=== PATIENT | female | born 1955 | race Caucasian/White ===

== ENCOUNTER 2018-05-03 19:32 | Emergency (ER) | payer BC ==
[~2018-05-03] VITALS: Ht 154.9 cm; Wt 62.1 kg
[~2018-05-03 19:32] MED LIST: ACET500T98 PO; AMLO2.5T2 PO; DIPH50VI2 PO; MED4DP PO
[2018-05-03 19:36] VITALS: Ht 154.9 cm; Wt 62.1 kg
[2018-05-03] MEDS ORDERED: SODIUM CHLORIDE 0.9% 1L BAG IV* STA (19:41)
[2018-05-03] MEDS ORDERED: ACETAMINOPHEN 325 MG TAB PO STA (19:41)
[2018-05-03] MEDS ORDERED: AZTREONAM 1 GM/NS (PMX) 50 ML IVPB STA (19:41)
[2018-05-03] MEDS ORDERED: VANCOMYCIN 1 GM (PMX) 250 ML IVPB ONE (20:00)
[2018-05-03] MEDS ORDERED: ONDANSETRON 4 MG INJ IV STA (20:04)
[2018-05-03] MEDS ORDERED: ACET325T33 PO (21:33)
[2018-05-03] MEDS ORDERED: IBUP-1542 PO (21:33)
--- NOTE | 2018-05-03 21:35 | ERD ---
ER Documentation Chief Complaint Chief Complaint C/O COUGH, FEVER, PABLO, ST AND EAR ACHE, ON ANTIBIOTICS HPI Patient is a 62-year-old female with hypertension who presents with fever. The patient is currently on antibiotics for a throat and ear infection per the . The symptoms started on Saturday. She was continued to have fevers. She had a lot of cough as well. The patient has had no urinary symptoms. She is currently on Zithromax. Upon review of old medical records this is the patient's fourth visit to the ER since 2012. The patient's primary doctor is Dr. Dinah Gimenez. ROS All systems reviewed and are negative except as per history of present illness. Medications Home Meds Active Scripts Ibuprofen* (Motrin*) 600 Mg Tab, 600 MG PO Q6H PRN for PAIN AND OR ELEVATED TEMP, #30 TAB Prov:BANDAR TAYLOR MD 05/03/18 Acetaminophen* (Tylenol*) 325 Mg Tablet, 2 TAB PO Q6 PRN for PAIN AND OR ELEVATED TEMP, #20 TAB Prov:BANDAR TAYLOR MD 05/03/18 Diphenhydramine* Inj (Benadryl* Inj) 50 Mg/Ml Soln, 25 MG PO Q6H, #40 VIAL Prov:MARY CASANOVA MD 11/08/13 Methylprednisolone* (Medrol* DOSE PACK) 4 Mg/Dose-Pack Tab.ds.pk, 5 MG PO 2 HOURS AFTER MEALS, #45 Take 6 pills orally for 2 days Take 5 pills orally for 2 days Take 4 pills orally for 2 days Take 3 pills orally for 2 days Take 2 pills orally for 2 days Take 1 pill orally for 2 days Take one half pill orally for 2 days Prov:MARY CASNAOVA MD 11/08/13 Amlodipine Besylate* (Norvasc*) 2.5 Mg Tab, 2.5 MG PO ONCE, #14 Prov:MARY CASANOVA MD 11/08/13 Reported Medications Acetaminophen (Tylenol) 500 Mg Tab, 500 MG PO Q4 PRN for PAIN LEVEL 1-3, TAB 11/07/13 Allergies Allergies: Coded Allergies: Cefadroxil (Verified Allergy, Severe, facial rash, 11/07/13) Penicillins (Verified Allergy, Unknown, 11/06/13) PMhx/Soc Medical and Surgical Hx: pt denies Surgical Hx History of Surgery: No Anesthesia Reaction: No Hx Neurological Disorder: No Hx Respiratory Disorders: No Hx Cardiac Disorders: Yes (HTN) Hx Psychiatric Problems: No Hx Miscellaneous Medical Probl: No Hx Alcohol Use: No Hx Substance Use: No Hx Tobacco Use: No Smoking Status: Never smoker FmHx Family History: No diabetes Physical Exam Vitals Vital Signs Date Temp Pulse Resp B/P (MAP) Pulse Ox O2 O2 Flow FiO2 Time Delivery Rate 05/03/18 99.0 89 16 161/69 100 Room Air 21:41 (99) 05/03/18 101.0 103 20 161/63 97 20:29 (95) 05/03/18 101.4 111 24 154/67 95 19:36 (96) Physical Exam Const: No acute distress Head: Atraumatic Eyes: Normal Conjunctiva ENT: Normal External Ears, Nose and Mouth. Neck: Full range of motion. No meningismus. Resp: Clear to auscultation bilaterally Cardio: Regular rate and rhythm, no murmurs Abd: Soft, non tender, non distended. Normal bowel sounds Skin: No petechiae or rashes Back: No midline or flank tenderness Ext: No cyanosis, or edema Neur: Awake and alert Psych: Normal Mood and Affect Result Diagram: 05/03/18194705/03/181947 Results 24 hrs Laboratory Tests Test 05/03/18 19:48 05/03/18 19:49 05/03/18 20:20 White Blood Count 5.4 10^3/ul Red Blood Count 4.77 10^6/ul Hemoglobin 13.2 g/dl Hematocrit 42.1 % Mean Corpuscular Volume 88.3 fl Mean Corpuscular Hemoglobin 27.7 pg Mean Corpuscular 31.4 g/dl Hemoglobin Concent Red Cell Distribution Width 13.6 % Platelet Count 184 10^3/UL Mean Platelet Volume 9.5 fl Immature Granulocytes % 0.200 % Neutrophils % 76.9 % Lymphocytes % 14.2 % Monocytes % 8.1 % Eosinophils % 0.2 % Basophils % 0.4 % Nucleated Red Blood Cells % 0.0 /100WBC Immature Granulocytes # 0.010 10^3/ul Neutrophils # 4.2 10^3/ul Lymphocytes # 0.8 10^3/ul Monocytes # 0.4 10^3/ul Eosinophils # 0.0 10^3/ul Basophils # 0.0 10^3/ul Nucleated Red Blood Cells # 0.0 10^3/ul Prothrombin Time 11.9 Sec Prothrombin Time Ratio 0.9 INR International 0.87 Normalized Ratio Activated Partial Thromboplast 33.4 Sec Time Sodium Level 138 mmol/L Potassium Level 3.6 mmol/L Chloride Level 101 mmol/L Carbon Dioxide Level 27 mmol/L Anion Gap 10 Blood Urea Nitrogen 24 mg/dl Creatinine 0.80 mg/dl Est Glomerular Filtrat > 60 mL/min Rate mL/min Glucose Level 111 mg/dl Calcium Level 9.7 mg/dl Total Bilirubin 0.1 mg/dl Direct Bilirubin 0.00 mg/dl Indirect Bilirubin 0.1 mg/dl Aspartate Amino 40 IU/L Transf (AST/SGOT) Alanine 27 IU/L Aminotransferase (ALT/SGPT) Alkaline Phosphatase 76 IU/L Troponin I < 0.012 ng/ml Total Protein 8.5 g/dl Albumin 4.3 g/dl Globulin 4.20 g/dl Albumin/Globulin Ratio 1.02 POC Venous Lactate 1.0 mmol/L Urine Color YELLOW Urine Clarity CLEAR Urine pH 5.0 Urine Specific [place] 1.019 Urine Ketones NEGATIVE mg/dL Urine Nitrite NEGATIVE mg/dL Urine Bilirubin NEGATIVE mg/dL Urine Urobilinogen NEGATIVE mg/dL Urine Leukocyte Esterase TRACE Peg/ul Urine Microscopic RBC 1 /HPF Urine Microscopic WBC 3 /HPF Urine Squamous Epithelial Cells FEW /HPF Urine Bacteria FEW /HPF Urine Hemoglobin NEGATIVE mg/dL Urine Glucose NEGATIVE mg/dL Urine Total Protein 1+ mg/dl Current Medications Medications Dose Sig/Flaco Start Time Status Last (Trade) Ordered Route PRN Stop Time Admin Dose Reason Admin Sodium 1,860 ml BOLUS OVER 2 05/03/18 DC 05/03/18 Chloride HOURS STAT 19:41 20:14 (NS) IV* 05/03/18 19:42 650 mg ONCE STAT 05/03/18 DC 05/03/18 Acetaminophen PO 19:41 20:14 (Tylenol 05/03/18 19:42 Tab) Vancomycin 250 ml @ ONCE ONCE 05/03/18 DC 05/03/18 HCl 125 mls/hr IVPB 20:00 20:55 05/03/18 21:59 Aztreonam 50 ml @ ONCE STAT 05/03/18 DC 05/03/18 100 mls/hr IVPB 19:41 20:13 05/03/18 20:10 Ondansetron 4 mg ONCE STAT 05/03/18 DC 05/03/18 HCl (Zofran IV 20:04 20:13 Inj) 05/03/18 20:05 Procedures/MDM EKG read by me: Rate/Rhythm: Sinus tachycardia rate of 101 Intervals: Normal Impression: Sinus tachycardia without ischemia Chest x-ray negative for pneumonia or pneumothorax per radiology. Patient is a 62-year-old female who presents with a fever. Complete septic workup was done and there was no elevated white blood cell count or elevated lactic acid. X-ray shows no pneumonia and urine sample was negative for infection. Influenza swab was negative. It is possible the patient has a pharyngitis or otitis media but she can continue to take her antibiotics at home. She does not require admission to the hospital at this time. She will need to follow-up closely with her primary doctor and can return if symptoms worsen. Departure Diagnosis: Primary Impression: Fever Fever type: unspecified Qualified Codes: R50.9 - Fever, unspecified Additional Impression: Pharyngitis Pharyngitis/tonsillitis etiology: unspecified etiology Qualified Codes: J02.9 - Acute pharyngitis, unspecified Condition: Fair Patient Instructions: Fever Control (Adult), Pharyngitis, Strep (Presumed) Referrals: DINAH GIMENEZ MD (PCP) Additional Instructions: Llame al doctor RICKY y veronika adrienne DANO PARA DENTRO DE 1-2 WHITMAN.Dgale a la secretaria que nosotros le instruimos hacer esta dano.Avise o llame si pugh condicin se empeora antes de la dano. Regresa aqui si peor o no mejor. BANDAR TAYLOR MD May 03, 2018 21:35
[2018-05-03] MEDS ORDERED: KETOROLAC 30 MG INJ IV STA (23:25)
[2018-05-03 23:36] VITALS: BP 152/73; PULSE 85; RESP 26
== END 2018-05-03 23:44 | disposition home or self-care (01) ==
LOC: E/R 19:32
DX: J02.9 Acute pharyngitis, unspecified (principal); I10 Essential (primary) hypertension
CPT/HCPCS: 71045; 80053; 81001; 83605; 84484; 85025; 85610; 85730; 87040; 87086; 87400; 93005; J1885; J2405; J3370; J7030; 36415; 96365; 96375